=== PATIENT | male | born 1950 | race Caucasian/White ===

== ENCOUNTER 2018-06-21 08:09 | Emergency (ER) | payer MEDICARE, OTHER ==
[~2018-06-21] VITALS: Ht 170.2 cm; Wt 126.0 kg
[~2018-06-21 08:09] MED LIST: ONDA8TAB9 PO
[2018-06-21] MEDS ORDERED: normal saline 1000ML IV soln IVB ONE (08:25)
[2018-06-21] MEDS ORDERED: morphine 4 MG/ML inj SYRINge IV PRN (08:25)
[2018-06-21] MEDS ORDERED: ondansetron/PF 4mg/2ml inj IV ONE (08:25)
[2018-06-21 08:51] LABS: CLARITY,URINE SLIGHTLY CLOUDY (Clear); COLOR,URINE YELLOW (Yellow); GLUCOSE, URINE NEGATIVE (Neg); KETONES,URINE NEGATIVE (Neg); LEUKOCYTE ESTERASE ,URINE NEGATIVE (Neg); NITRITES, URINE NEGATIVE (Neg); OCCULT BLOOD,URINE LARGE (Neg); PROTEIN,URINE NEGATIVE (Neg); UROBILINOGEN,URINE 0.2 E.U/dL (0.2-1.0)
[2018-06-21 08:59] LABS: BASOPHILS % (AUTO) 0.5 % (0-1); EOSINOPHILS # (AUTO) 0.2 X10'3 (0-0.9); EOSINOPHILS % (AUTO) 1.6 % (0-6); HEMATOCRIT 38.5 % (42.0-52.0); HEMOGLOBIN 13.1 g/dl (14.0-17.9); LYMPHOCYTES # (AUTO) 1.3 X10'3 (1.1-4.8); LYMPHOCYTES % (AUTO) 13.7 % (21-51); MEAN CORPUSCULAR HEMOGLOBIN 27.5 PG (27.0-31.0); MEAN PLATELET VOLUME 7.9 FL (7.4-10.4); MONOCYTES # (AUTO) 0.5 X10'3 (0-0.9); MONOCYTES % (AUTO) 4.9 % (2-12); NEUTROPHILS # (AUTO) 7.6 X10'3 (1.8-7.7); NEUTROPHILS % (AUTO) 79.3 % (42-75); PLATELET COUNT 209 X10'3 (140-440); RED BLOOD COUNT 4.75 X10'6 (4.70-6.10); RED CELL DISTRIBUTION WIDTH 15.7 % (11.5-14.5); WHITE BLOOD COUNT 9.6 X10'3 (4.5-11.0)
[2018-06-21 09:00] LABS: PROTHROMBIN TIME 10.4 SECONDS (9.0-12.0)
[2018-06-21 09:04] LABS: UA COLLECTION TYPE CLN CATCH MIDSTREAM
[2018-06-21 09:06] LABS: BACTERIA,URINE 3+ /HPF (Neg); MUCUS STRANDS MANY /LPF (Neg); RBC,URINE TNTC /HPF (0-2); SQUAMOUS EPITHELIAL CELL,UR FEW /LPF (FEW)
[2018-06-21 09:06] LABS: ALANINE AMINOTRANSFERASE 35 U/L (12-78); ALBUMIN 3.8 G/DL (3.4-5.0); ALBUMIN/GLOBULIN RATIO 1.1 (1.1-1.5); ALKALINE PHOSPHATASE 68 IU/L (46-116); ANION GAP 12 (8-16); ASPARTATE AMINO TRANSFERASE 19 U/L (10-37); BILIRUBIN,TOTAL 0.3 MG/DL (0.1-1.0); BLOOD UREA NITROGEN 19 MG/DL (7-18); BUN/CREATININE RATIO 17.6 (5.4-32.0); CALCIUM 9.4 MG/DL (8.5-10.1); CHLORIDE 102 MMOL/L (99-107); CREATININE 1.08 MG/DL (0.60-1.10); GLUCOSE 109 MG/DL (70-104); POTASSIUM 3.7 MMOL/L (3.5-5.1); SODIUM 138 MMOL/L (135-145); TOTAL CARBON DIOXIDE 24.1 MMOL/L (24-32); TOTAL PROTEIN 7.4 G/DL (6.4-8.2); eGFR 68 ML/MIN
[2018-06-21] MEDS ORDERED: tamsulosin 0.4mg capsule PO STA (09:18)
[2018-06-21] MEDS ORDERED: NAPR-56 PO (09:20)
[2018-06-21] MEDS ORDERED: HYDR-569 PO (09:20)
[2018-06-21] MEDS ORDERED: ketorolac trometh. 30mg/ml inj. IV ONE (09:20)
[2018-06-21] MEDS ORDERED: ONDA4TAB9 SL (09:20)
[2018-06-21] MEDS ORDERED: FLO0.4C PO (09:20)
[2018-06-21] MEDS ORDERED: CIPR-259 PO (09:35)
[2018-06-21 09:42] VITALS: BP 134/68
== END 2018-06-21 10:01 | disposition home or self-care (01) ==
LOC: ER 08:12
DX: N39.0 Urinary tract infection, site not specified (principal); N20.0 Calculus of kidney; J44.9 Chronic obstructive pulmonary disease, unspecified; G89.29 Other chronic pain; M54.9 Dorsalgia, unspecified; Z90.49 Acquired absence of other specified parts of digestive tract; Z98.890 Other specified postprocedural states; Z79.899 Other long term (current) drug therapy
CPT/HCPCS: 36415; 74176; 80053; 81001; 85025; 85610; 87088; 96361; 96374; 96375; 99285; J1885; J2405; J7030

== ENCOUNTER 2021-06-10 15:01 | Emergency (ER) | payer OTHER, MEDICARE ==
[~2021-06-10] VITALS: Ht 170.2 cm; Wt 116.0 kg
[~2021-06-10 15:01] MED LIST changes: +HYDR-4383 PO
[2021-06-10 15:07] VITALS: BP 144/71
[2021-06-10 15:50] LABS: EOSINOPHILS # (AUTO) 0.1 X10'3 (0-0.9); EOSINOPHILS % (AUTO) 3.2 % (0-6); HEMATOCRIT 39.6 % (42.0-52.0); HEMOGLOBIN 13.5 g/dl (14.0-17.9); LYMPHOCYTES # (AUTO) 1.6 X10'3 (1.1-4.8); LYMPHOCYTES % (AUTO) 36.2 % (21-51); MEAN CORPUSCULAR HEMOGLOBIN 28.3 PG (27.0-31.0); MEAN CORPUSCULAR HGB CONC 34.1 g/dL (33.0-36.5); MEAN CORPUSCULAR VOLUME 83.1 FL (78-98); MEAN PLATELET VOLUME 7.5 FL (7.4-10.4); MONOCYTES # (AUTO) 0.5 X10'3 (0-0.9); MONOCYTES % (AUTO) 11.5 % (2-12); NEUTROPHILS # (AUTO) 2.2 X10'3 (1.8-7.7); NEUTROPHILS % (AUTO) 48.1 % (42-75); PLATELET COUNT 239 X10'3 (140-440); RED BLOOD COUNT 4.76 X10'6 (4.70-6.10); RED CELL DISTRIBUTION WIDTH 14.5 % (11.5-14.5); WHITE BLOOD COUNT 4.5 X10'3 (4.5-11.0)
[2021-06-10 16:07] LABS: ALANINE AMINOTRANSFERASE 61 U/L (12-78); ALBUMIN 3.8 G/DL (3.4-5.0); ALBUMIN/GLOBULIN RATIO 1.1 (1.1-1.5); ALKALINE PHOSPHATASE 79 IU/L (46-116); ANION GAP 12 (8-16); ASPARTATE AMINO TRANSFERASE 36 U/L (10-37); BILIRUBIN,TOTAL 0.5 MG/DL (0.1-1.0); BLOOD UREA NITROGEN 19 MG/DL (7-18); BUN/CREATININE RATIO 21.8 (5.4-32.0); CALCIUM 9.2 MG/DL (8.5-10.1); CHLORIDE 108 MMOL/L (99-107); CREATININE 0.87 MG/DL (0.60-1.10); GLUCOSE 103 MG/DL (70-104); POTASSIUM 3.4 MMOL/L (3.5-5.1); SODIUM 146 MMOL/L (135-145); TOTAL CARBON DIOXIDE 26.5 MMOL/L (24-32); TOTAL PROTEIN 7.2 G/DL (6.4-8.2); eGFR 87 ML/MIN
== END 2021-06-10 21:39 | disposition left against medical advice (07) ==
LOC: ER 15:02
DX: R07.89 Other chest pain (principal); Z53.21 Procedure and treatment not carried out due to patient leaving prior to being seen by health care provider
CPT/HCPCS: 36415; 71045; 80053; 83880; 84484; 85025; 93005

== ENCOUNTER 2021-11-21 05:29 | Day surgery (SDC) | payer OTHER ==
[2021-11-14 15:21] LABS: BASOPHILS % (AUTO) 0.8 % (0-1); EOSINOPHILS # (AUTO) 0.1 X10'3 (0-0.9); LYMPHOCYTES % (AUTO) 39.2 % (21-51); MEAN CORPUSCULAR HEMOGLOBIN 29.3 PG (27.0-31.0); MEAN CORPUSCULAR HGB CONC 34.4 g/dL (33.0-36.5); MEAN CORPUSCULAR VOLUME 85.3 FL (78-98); MEAN PLATELET VOLUME 7.5 FL (7.4-10.4); MONOCYTES # (AUTO) 0.5 X10'3 (0-0.9); MONOCYTES % (AUTO) 8.9 % (2-12); NEUTROPHILS # (AUTO) 2.5 X10'3 (1.8-7.7); NEUTROPHILS % (AUTO) 49.1 % (42-75); PRE OP HEMOGLOBIN 14.5 g/dL (14.0-17.9); PRE OP PLATELET COUNT 248 X10'3 (140-440); RED BLOOD COUNT 4.93 X10'6 (4.70-6.10); RED CELL DISTRIBUTION WIDTH 15.4 % (11.5-14.5)
[2021-11-14 15:33] LABS: ALBUMIN 3.9 G/DL (3.4-5.0); ALBUMIN/GLOBULIN RATIO 1.1 (1.1-1.5); ALKALINE PHOSPHATASE 82 IU/L (46-116); BLOOD UREA NITROGEN 16 MG/DL (7-18); CALCIUM 9.8 MG/DL (8.5-10.1); CHLORIDE 105 MMOL/L (99-107); CREATININE 0.89 MG/DL (0.60-1.10); PRE OP ANION GAP 7 (8-16); PRE OP AST 30 U/L (10-37); PRE OP BILIRUB, TOTAL 0.4 MG/DL (0.0-1.0); PRE OP GLUCOSE 111 MG/DL (70-104); PRE OP POTASSIUM 3.9 MMOL/L (3.4-5.1); PRE OP SODIUM 142 MMOL/L (135-145); TOTAL CARBON DIOXIDE 29.7 MMOL/L (24-32); TOTAL PROTEIN 7.4 G/DL (6.4-8.2); eGFR 84 ML/MIN
[2021-11-14 15:35] LABS: PRE OP ALT 81 U/L (30-65)
[~2021-11-21] VITALS: Ht 170.2 cm; Wt 118.9 kg
[~2021-11-21 05:29] MED LIST changes: +ATOR10TA70 PO; -HYDR-4383 PO; +HYDR25TA4 PO; +LYR25C PO; +MELA1LIQ PO; +OMEP40CA21 PO; -ONDA8TAB9 PO; +OXYB5TAB16 PO; +OXYC5CAP19 PO; +SULF500T59 PO; +ringers solution, lacted 1,000 ML IV SCH
[2021-11-21] MEDS ORDERED: ceFAZolin inj. 3,000 MG in normal saline 100ml IV soln 100 ML IV ONE (05:30)
[2021-11-21] MEDS ORDERED: famotidine 20mg tablet PO ONE (05:30)
[2021-11-21] MEDS ORDERED: albuterol 2.5 MG/3 ML nebule NEB ONE (05:30)
[2021-11-21] MEDS ORDERED: LIDOcaine 1% 30ml preserv. free vial ONE (07:54)
[2021-11-21 07:56] VITALS: BP 137/74
[2021-11-21 07:57] VITALS: BP 137/74
[2021-11-21] MEDS ORDERED: BUPIVAcaine/PF 2.5mg/ml (0.25%) 10ml vial ONE (08:48)
[2021-11-21] MEDS ORDERED: midazolam 1 mg/ML 2ml injection ONE (09:25)
[2021-11-21] MEDS ORDERED: fentaNYL/PF 50MCG/1 ML 2ML syringe ONE (09:25)
[2021-11-21] MEDS ORDERED: ketorolac trometh. 30mg/ml inj. ONE (09:35)
[2021-11-21] MEDS ORDERED: 0.9 % SODIUM CHLORIDE 10 ML VIAL ONE (09:36)
[2021-11-21] MEDS ORDERED: acetaminophen 1,000mg/100ml IV 100 ML IV ONE (10:19)
[2021-11-21 10:28] VITALS: BP 118/68
--- NOTE | 2021-11-21 10:28 | NUR ---
Received from OR via , accompanied by Anesthesiologist DR AGUIRRE and report given by Anesthesiolgist.AWAKENS TO VOICE. VITALS STABLE. DRESSING DI. CASANDRA PAIN. FINGERS WARM AND PINK.
[2021-11-21 10:38] VITALS: BP 113/69
[2021-11-21 10:48] VITALS: BP 132/63
--- NOTE | 2021-11-21 11:08 | NUR ---
AWAKE AND ORIENTED. VITALS STABLE. DRESSING DI. CASANDRA PAIN. HOME WITH A FRIEND AT THIS TIME.
== END 2021-11-21 11:08 | disposition home or self-care (01) ==
LOC: PAS 05:29
PROVIDERS: ATTEND Orthopaedic Surgery Hand Surgery
DX: M18.12 Unilateral primary osteoarthritis of first carpometacarpal joint, left hand (principal); G56.02 Carpal tunnel syndrome, left upper limb; G47.30 Sleep apnea, unspecified; I10 Essential (primary) hypertension; E66.9 Obesity, unspecified; Z68.41 Body mass index [BMI] 40.0-44.9, adult; Z79.899 Other long term (current) drug therapy; Z98.890 Other specified postprocedural states; Z87.891 Personal history of nicotine dependence; Z86.19 Personal history of other infectious and parasitic diseases; Z20.822 Contact with and (suspected) exposure to COVID-19
CPT/HCPCS: 25310; 25447; 36415; 64721; 80053; 82948; 85025; A6222; J0131; J0690; J1885; J2250; J3010; J3490; J7030; J7120; U0003; U0005; Z7506; Z7508; Z7512; A4215; A4618; A7000

== ENCOUNTER 2024-11-20 06:41 | Observation (INO) | payer OTHER ==
[2024-11-16 15:53] LABS: BASOPHILS # (AUTO) 0.1 X10'3 (0-0.2); BASOPHILS % (AUTO) 1.1 % (0-1); EOSINOPHILS # (AUTO) 0.1 X10'3 (0-0.9); EOSINOPHILS % (AUTO) 1.9 % (0-6); LYMPHOCYTES # (AUTO) 1.9 X10'3 (1.1-4.8); LYMPHOCYTES % (AUTO) 33.4 % (21-51); MEAN CORPUSCULAR HEMOGLOBIN 29.3 PG (27.0-31.0); MEAN CORPUSCULAR HGB CONC 34.1 g/dL (33.0-36.5); MEAN PLATELET VOLUME 7.9 FL (7.4-10.4); MONOCYTES # (AUTO) 0.5 X10'3 (0-0.9); MONOCYTES % (AUTO) 8.7 % (2-12); NEUTROPHILS # (AUTO) 3.1 X10'3 (1.8-7.7); NEUTROPHILS % (AUTO) 54.9 % (42-75); PRE OP HEMATOCRIT 43.8 % (42.0-52.0); PRE OP HEMOGLOBIN 14.9 g/dL (14.0-17.9); PRE OP PLATELET COUNT 238 X10'3 (140-440); PRE OP WHITE BLOOD COUNT 5.6 10'3 (4.8-10.8); RED BLOOD COUNT 5.09 X10'6 (4.70-6.10); RED CELL DISTRIBUTION WIDTH 14.3 % (11.5-14.5)
[2024-11-16 15:54] LABS: BILIRUBIN,URINE NEGATIVE (Neg); CLARITY,URINE CLEAR (Clear); COLOR,URINE YELLOW (Yellow); GLUCOSE, URINE NEGATIVE (Neg); KETONES,URINE NEGATIVE (Neg); LEUKOCYTE ESTERASE ,URINE NEGATIVE (Neg); NITRITES, URINE NEGATIVE (Neg); OCCULT BLOOD,URINE NEGATIVE (Neg); PROTEIN,URINE NEGATIVE (Neg); UROBILINOGEN,URINE 0.2 E.U/dL (0.2-1.0)
[2024-11-16 15:59] LABS: UA COLLECTION TYPE NON-SPECIFIED
[2024-11-16 16:22] LABS: PRE OP PROTIME 10.5 SECONDS (9.0-12.0)
[2024-11-16 16:26] LABS: ALBUMIN 3.9 G/DL (3.4-5.0); ALBUMIN/GLOBULIN RATIO 1.1 (1.1-1.5); ALKALINE PHOSPHATASE 86 IU/L (46-116); BLOOD UREA NITROGEN 12 MG/DL (7-18); BUN/CREATININE RATIO 14.3 (10.0-20.0); CALCIUM 9.9 MG/DL (8.5-10.1); CHLORIDE 105 MMOL/L (99-107); CREATININE 0.84 MG/DL (0.60-1.10); PRE OP ALT 69 U/L (30-65); PRE OP ANION GAP 9 (8-16); PRE OP AST 25 U/L (10-37); PRE OP BILIRUB, TOTAL 0.5 MG/DL (0.0-1.0); PRE OP GLUCOSE 97 MG/DL (70-104); PRE OP POTASSIUM 4.1 MMOL/L (3.4-5.1); PRE OP SODIUM 141 MMOL/L (135-145); TOTAL CARBON DIOXIDE 27.3 MMOL/L (24-32); TOTAL PROTEIN 7.6 G/DL (6.4-8.2); eGFR 89 ML/MIN
[~2024-11-20] VITALS: Ht 167.6 cm; Wt 124.2 kg
[2024-11-20] VITALS (31 sets, daily range): BP systolic 100–147; BP diastolic 59–111; PULSE 75–101; RESP 12–22; TEMP 97.5–97.7; O2SAT 91–96
[2024-11-20] MEDS: tranexamic acid 1gm/0.7% sal. 100 ML IV ONE (05:30)
[2024-11-20] MEDS: Cefazolin 3 GM/100ML NS IVPB 100 ML IV ONE (05:30)
[~2024-11-20 06:41] MED LIST changes: +ACET-2119 PO; +ALBU8HFA INH; -ATOR10TA70 PO; +FLO0.4C PO; -HYDR25TA4 PO; +LISI10TA27 PO; -LYR25C PO; +MELA10TA2 PO; -MELA1LIQ PO; -OXYB5TAB16 PO; -OXYC5CAP19 PO; +PREG200C29 PO; -SULF500T59 PO; +TIOT4MIS2 IH; -ringers solution, lacted 1,000 ML IV SCH
[2024-11-20] MEDS: famotidine 20mg tablet PO ONE (07:25)
[2024-11-20] MEDS: ringers solution, lacted 1,000 ML IV SCH ×2 (07:26→15:52)
[2024-11-20] MEDS ORDERED: meperidine/PF 25mg/ml syringe IV PRN ×2 (08:40)
[2024-11-20] MEDS ORDERED: ondansetron/PF 4mg/2ml inj IV PRN ×2 (08:40→10:40)
[2024-11-20] MEDS ORDERED: labetalol 20mg/4ml (5mg/ml) syringe IV PRN (08:40)
[2024-11-20] MEDS ORDERED: proCHLORperazine 10 MG/2 ml inj IV PRN (08:40)
[2024-11-20] MEDS ORDERED: morphine 2 MG/ML inj. syringe IV PRN (08:40)
[2024-11-20] MEDS ORDERED: enalaprilat 1.25mg/ml 2ml vial IV PRN (08:40)
[2024-11-20] MEDS ORDERED: desflurane 240ml liquid inh. IH ONE (10:32)
[2024-11-20] MEDS ORDERED: midazolam 1 mg/ML 2ml injection ONE (10:37)
[2024-11-20] MEDS ORDERED: fentaNYL/PF 50MCG/1 ML 2ML syringe ONE (10:37)
[2024-11-20] MEDS ORDERED: naloxone 0.4 mg/ml inj IV PRN (10:40)
[2024-11-20] MEDS ORDERED: magnesium hydroxide 30ml (MOM) UD suspension PO PRN (10:40)
[2024-11-20] MEDS ORDERED: acetaminophen 325mg tablet PO PRN (10:40)
[2024-11-20] MEDS ORDERED: diphenhydrAMINE 25mg capsule PO PRN (10:40)
[2024-11-20] MEDS ORDERED: bisacodyl 10mg suppository rectal RC PRN (10:40)
[2024-11-20] MEDS ORDERED: LIDOcaine 1%/PF 5ML 10 MG/ML VIAL ONE (10:48)
[2024-11-20] MEDS ORDERED: rocuronium 10mg/ml inj IV ONE (10:59)
[2024-11-20] MEDS ORDERED: propofol inj 20 ML IV ONE (11:00)
[2024-11-20] MEDS ORDERED: dexamethasone sod phosphate 4mg/ml inj. ONE (11:05)
[2024-11-20] MEDS ORDERED: ROPIVAcaine 0.5% (5mg/ml) 30ml vial ONE (11:06)
[2024-11-20] MEDS ORDERED: vancomycin 1,000mg inj ONE ×2 (12:00→12:23)
[2024-11-20] MEDS: meperidine/PF 25mg/ml syringe IV PRN (13:10)
[2024-11-20] MEDS: ipratropium/albuterol 3ml nebule NEB ONE (13:23)
[2024-11-20] MEDS: morphine 4 MG/ML inj SYRINge IV PRN (13:36)
[2024-11-20] MEDS ORDERED: albuterol 2.5 MG/3 ML nebule NEB PRN (15:15)
[2024-11-20] MEDS: potassium cl 20mEq in 1/2 NS 1,000 ML IV SCH (15:52)
[2024-11-20] MEDS ORDERED: pregabalin 25mg capsule PO SCH (16:00)
[2024-11-20] MEDS: oxyCODONE IR 5mg (immed. release) tablet PO PRN (16:02)
[2024-11-20] MEDS: pregabalin 75mg capsule PO SCH (16:09)
[2024-11-20] MEDS: pregabalin 25mg capsule PO SCH (16:09)
[2024-11-20] MEDS: ceFAZolin 2gm in dextrose, iso 50 ML IV SCH (20:03)
[2024-11-20] MEDS: pantoprazole 40mg Tablet.DR PO SCH (20:29)
[2024-11-20] MEDS ORDERED: Melatonin 3mg tablet PO PRN (21:00)
[2024-11-21] MEDS: tamsulosin 0.4mg capsule PO SCH (00:07)
[2024-11-21 06:57] LABS: BASOPHILS % (AUTO) 0.2 % (0-1); EOSINOPHILS % (AUTO) 0.1 % (0-6); HEMATOCRIT 39.2 % (42.0-52.0); HEMOGLOBIN 13.5 g/dl (14.0-17.9); LYMPHOCYTES # (AUTO) 1.2 X10'3 (1.1-4.8); LYMPHOCYTES % (AUTO) 9.8 % (21-51); MEAN CORPUSCULAR HEMOGLOBIN 29.6 PG (27.0-31.0); MEAN CORPUSCULAR HGB CONC 34.3 g/dL (33.0-36.5); MEAN CORPUSCULAR VOLUME 86.3 FL (78-98); MEAN PLATELET VOLUME 8.2 FL (7.4-10.4); MONOCYTES # (AUTO) 0.8 X10'3 (0-0.9); MONOCYTES % (AUTO) 6.6 % (2-12); NEUTROPHILS # (AUTO) 9.8 X10'3 (1.8-7.7); NEUTROPHILS % (AUTO) 83.3 % (42-75); PLATELET COUNT 286 X10'3 (140-440); RED BLOOD COUNT 4.55 X10'6 (4.70-6.10); RED CELL DISTRIBUTION WIDTH 14.5 % (11.5-14.5); WHITE BLOOD COUNT 11.8 X10'3 (4.5-11.0)
[2024-11-21] MEDS ORDERED: ipratropium 0.5 MG/2.5ML nebule IH PRN (08:00)
[2024-11-21 08:09] LABS: ALANINE AMINOTRANSFERASE 55 U/L (12-78); ALBUMIN 3.7 G/DL (3.4-5.0); ALBUMIN/GLOBULIN RATIO 0.9 (1.1-1.5); ALKALINE PHOSPHATASE 84 IU/L (46-116); ANION GAP 12 (8-16); ASPARTATE AMINO TRANSFERASE 35 U/L (10-37); BILIRUBIN,TOTAL 0.5 MG/DL (0.1-1.0); BLOOD UREA NITROGEN 18 MG/DL (7-18); BUN/CREATININE RATIO 16.1 (10.0-20.0); CALCIUM 9.2 MG/DL (8.5-10.1); CHLORIDE 102 MMOL/L (99-107); CREATININE 1.12 MG/DL (0.60-1.10); GLUCOSE 119 MG/DL (70-104); POTASSIUM 4.4 MMOL/L (3.5-5.1); SODIUM 137 MMOL/L (135-145); TOTAL CARBON DIOXIDE 22.9 MMOL/L (24-32); TOTAL PROTEIN 7.6 G/DL (6.4-8.2); eCRCL 52 ML/MIN; eGFR 64 ML/MIN
[2024-11-21 08:27] VITALS: BP_SYST 133; PULSE 84
[2024-11-21] MEDS: lisinopril 10 MG tablet PO SCH (08:27)
[2024-11-21 08:28] VITALS: RESP 16
[2024-11-21] MEDS: oxyCODONE IR 5mg (immed. release) tablet PO PRN (08:28)
== END 2024-11-21 11:15 | disposition home or self-care (01) ==
LOC: PAS 06:41 → PACU 10:44 → ORTHO 4S 15:45
PROVIDERS: ADMIT Specialist; ATTEND Specialist
DX: M19.011 Primary osteoarthritis, right shoulder (principal); M75.21 Bicipital tendinitis, right shoulder; G89.18 Other acute postprocedural pain; G47.00 Insomnia, unspecified; I10 Essential (primary) hypertension; J44.9 Chronic obstructive pulmonary disease, unspecified; Z86.2 Personal history of diseases of the blood and blood-forming organs and certain disorders involving the immune mechanism; Z79.899 Other long term (current) drug therapy; Z86.73 Personal history of transient ischemic attack (TIA), and cerebral infarction without residual deficits
CPT/HCPCS: 23430; 23472; 36415; 64450; 71046; 73030; 80053; 81003; 82948; 85025; 85610; 85730; 86885; 86900; 86901; 87081; 93005; 94640; 94760; 96365; 96366; 97110; 97161; 97530; C1776; G0378; J0690; J1100; J2175; J2250; J2270; J2405; J2704; J2795; J3010; J3370; J3480; J3490; J7120; 76000; A4565; A4615; A4618; A6449; A6455; A7000